=== PATIENT | female | born 1990 | race Two or more races ===

== ENCOUNTER 2023-07-11 15:04 | Inpatient (IN) | payer OTHER ==
[~2023-07-11] VITALS: Ht 152.4 cm; Wt 33.1 kg
[2023-07-11 17:00] LABS: HEMATOCRIT 37.9 % (36.0-45.00); HEMOGLOBIN 13.1 g/dL (12.0-15.00); MEAN CELL VOLUME 83.3 fL (80.00-100.00); MEAN CORPUSCULAR HEMOGLOBIN 28.7 pg (27.00-32.0); MEAN CORPUSCULAR HGB CONC 34.4 g/dl (32.0-36.0); PLATELET COUNT 391 K/uL (150-450); RED BLOOD COUNT 4.55 M/uL (4.00-6.00); RED CELL DISTRIBUTION WIDTH 13.5 % (11.5-14.5)
[2023-07-11 17:23] LABS: CALCIUM 8.9 mg/dL (8.5-10.1); CREATININE SERUM 0.76 mg/dL (0.55-1.02); GFR 88.19; POTASSIUM 3.42 mEq/L (3.5-5.1)
[2023-07-11 18:50] LABS: PH,URINE 6.5 (5.0-8.0); URINE APPEARANCE Clear; URINE BILIRRUBIN Negative (NEGATIVE); URINE COLOR Yellow; URINE GLUCOSE Negative (NEGATIVE); URINE LEUKOCYTE Negative; URINE NITRATE Negative; URINE PROTEIN Negative (NEGATIVE); URINE UROBILINOGEN 0.2 E.U./dl
[2023-07-11 18:53] LABS: URINE BACTERIA 6.2 uL (0.0-1933); URINE RBC 18.3 uL (0.0-20.8)
[2023-07-11 18:55] LABS: URINE BLOOD Trace; URINE WBC 1.3 uL (0.0-23.2)
[2023-07-12 00:02] LABS: INR 1.11; PARTIAL THROMBOPLASTIN TIME 28.5 SECONDS (22.0-34.0); PROTHROMBIN TIME 11.6 SECONDS (9.0-11.5)
== END 2023-07-16 09:25 | disposition home or self-care (01) | DRG 387 ==
LOC: ER 15:04 → MEDJ 22:46
PROVIDERS: General Practice; ADMIT Internal Medicine; ATTEND Internal Medicine
PROC: BW21YZZ Computerized Tomography (CT Scan) of Abdomen and Pelvis using Other Contrast (ICD-10-PCS; principal; 2023-07-11)
DX: K50.90 Crohn's disease, unspecified, without complications (principal); K52.9 Noninfective gastroenteritis and colitis, unspecified; B95.8 Unspecified staphylococcus as the cause of diseases classified elsewhere